=== PATIENT | female | born 1965 | race Caucasian/White ===

== ENCOUNTER 2020-12-16 11:04 | Emergency (ER) | payer OTHER ==
[~2020-12-16] VITALS: Ht 160 cm; Wt 56.7 kg
== END 2020-12-16 14:54 | disposition home or self-care (01) ==
LOC: ER 11:04
DX: S60.211A Contusion of right wrist, initial encounter (principal); M79.631 Pain in right forearm; W18.09XA Striking against other object with subsequent fall, initial encounter; Y93.89 Activity, other specified; Y92.89 Other specified places as the place of occurrence of the external cause; Y99.8 Other external cause status